=== PATIENT | female | born 1955 | race American Indian/Alaskan Native ===

== ENCOUNTER 2020-06-11 07:47 | Emergency (ER) | payer SELFPAY ==
[2020-06-11] MEDS ORDERED: levETIRAcetam 1000 MG/NS 0.75% 1,000 MG/100 ML BAG IV ONE (08:29)
[2020-06-11] MEDS ORDERED: LORazepam 2 MG/ML VIAL IV ONE (08:29)
--- NOTE | 2020-06-11 08:36 | Consultation ---
History of Present Illness History of present illness: [facility] Date of Service: 06/11/2020 08:14:51 Impression: Intracerebral Hemorrhage Comments/Sign-Out: Patient presented with new onset seizure. HCT showed a new intracerebral hemorrhage. etiology of bleed is concerning for hypertensive. Since it is cortical would benefit from further imaging to rule out other causes. In terms of seizures would recommend ativan/ keppra. Metrics: Last Known Well: 06/10/2020 23:30:00 [facility] Notification Time: 06/11/2020 08:14:15 Arrival Time: 06/11/2020 07:47:00 Stamp Time: 06/11/2020 08:14:51 Time First Login Attempt: 06/11/2020 08:20:41 Video Start Time: 06/11/2020 08:20:41 Symptoms: Left sided numbness. NIHSS Start Assessment Time: 06/11/2020 08:25:00 Patient is not a candidate for Alteplase/Activase. Patient was not deemed candidate for Alteplase/Activase thrombolytics because of Current or Previous ICH. Video End Time: 06/11/2020 08:32:55 CT head was reviewed and results were: Rt frontal ICH Clinical Presentation is not Suggestive of Large Vessel Occlusive Disease ED Physician notified of diagnostic impression and management plan on 06/11/2020 08:31:32 Our recommendations are outlined below. Recommendations: Ativan 2mg IV STAT Keppra 3000 mg IV STAT Sign Out: Discussed with Emergency Department Provider History of Present Illness: Patient is a 65 year old Female. Patient was brought by private transportation with symptoms of Left sided numbness. Past Medical History of Hypertension presents with seizure. Last seen normal was the night prior around 2300. patient woke up with jerking of the left side. Was brought in ED feeling a little altered with left sided convulsions. No previous history of seizure Last seen normal was beyond 4.5 hours of presentation. There is no history of hemorrhagic complications or intracranial hemorrhage. There is no history of Recent Anticoagulants. There is no history of recent major surgery. There is no history of recent stroke. Past Medical History: Hypertension Anticoagulant use: No Antiplatelet use: ASA Examination: BP(.), Pulse(.), Blood Glucose(.) 1A: Level of Consciousness - Alert; keenly responsive + 0 1B: Ask Month and Age - Both Questions Right + 0 1C: Blink Eyes & Squeeze Hands - Performs Both Tasks + 0 2: Test Horizontal Extraocular Movements - Normal + 0 3: Test Visual Pringle - No Visual Loss + 0 4: Test Facial Palsy (Use Grimace if Obtunded) - Normal symmetry + 0 5A: Test Left Arm Motor Drift - No Movement + 4 5B: Test Right Arm Motor Drift - No Drift for 10 Seconds + 0 6A: Test Left Leg Motor Drift - No Movement + 4 6B: Test Right Leg Motor Drift - Drift, hits bed + 2 7: Test Limb Ataxia (FNF/Heel-Johnson) - No Ataxia + 0 8: Test Sensation - Normal; No sensory loss + 0 9: Test Language/Aphasia - Normal; No aphasia + 0 10: Test Dysarthria - Mild-Moderate Dysarthria: Slurring but can be understood + 1 11: Test Extinction/Inattention - No abnormality + 0 NIHSS Score: 11 Patient/Family was informed the Neurology Consult would happen via TeleHealth consult by way of interactive audio and video telecommunications and consented to receiving care in this manner. Dr Broderick [facility] Case [id number] Medications and Allergies Allergies Allergy/AdvReac Type Severity Reaction Status Date / Time No Known Allergies Allergy Unverified 06/11/20 07:58 Active Meds: Active Medications Levetiracetam (Keppra 1,000 Mg/Ns 0.75% 100ml) 1,000 mg in 100 mls @ 400 mls/hr IV ONCE ONE Stop: 06/11/20 08:43
[2020-06-11] MEDS ORDERED: niCARdipine DRIP 40 MG/200 ML BAG IV ONE (08:37)
--- NOTE | 2020-06-11 08:46 | Cat Scan Report ---
CT head/brain wo con INDICATION: Stroke protocol. TECHNIQUE: Routine CT head. All CT scans at this location are performed using CT dose reduction for A GINA by means of automated exposure control. COMPARISON: None. FINDINGS: Please note that image quality is significantly degraded by motion. Intracranial: No loss of araujo-white matter differentiation. There is a small parenchymal hemorrhage a long the right postcentral gyrus in the area that could affect the left leg. There is no hyperdensity of the superior sagittal sinus to suggest dural venous sinus thrombosis or in the sulci to suggest c ortical vein thrombosis. No extra axial collection.. No hydrocephalus. No herniation. Sinuses: Paranasal sinuses and mastoid air cells are essentially clear. Orbits: Globes are intact. Calvarium: No acute fracture. IMPRESSION: 1. Small parenchymal hemorrhage in the right postcentral gyrus. This is an atypical location for pa renchymal hemorrhages. Consider MRI for further evaluation. I informed Dr. Price who is taking care of this patient via telephone at [phone]. The patient was not kn own to be hypertensive and didnt have trauma history Signer Name: Tony Terrazas MD Signed: 06/11/2020 8:41 AM Workstation Name: [id number]
[2020-06-11 09:04] LABS: Hematocrit 43.8 % (30.3-42.9); Hemoglobin 15.1 gm/dl (10.1-14.3); Mean Corpuscular HGB Conc 34 % (30-34); Mean Corpuscular Volume 90 fl (79-97); Platelet Count 194 K/mm3 (140-440); Red Blood Count 4.88 M/mm3 (3.65-5.03); Red Cell Distribution Width 15.8 % (13.2-15.2)
[2020-06-11 09:05] LABS: INR 0.87 (0.87-1.13)
[2020-06-11 09:06] LABS: Thrombin Time 16.8 Sec. (15.1-19.6)
[2020-06-11 09:07] LABS: BUN/Creatinine Ratio 24; Blood Urea Nitrogen 17 mg/dL (7-17); Calcium 10.2 mg/dL (8.4-10.2); Hemolysis Index 19
[2020-06-11 09:09] LABS: Creatine Kinase MB 2.3 ng/mL (0.0-4.0)
--- NOTE | 2020-06-11 09:19 | Emergency Department Report ---
ED General Adult HPI - General Chief complaint: Seizure Stated complaint: NUMBNESS LT LEG PUI?: No Time Seen by Provider: 06/11/20 08:13 Source: patient, EMS Mode of arrival: Wheelchair Limitations: Other - History of Present Illness Initial comments: Patient is a 65-year-old F [place] female with a past medical history of hype rtension and remote stroke with no residual deficit who is presenting with shaking to the left leg with numbness. Patient states that she cannot stop shaking her left leg. States she has decreased sensation as well. When questioned further she states that she is also having shaking to the left arm. Patient was normal when she went to bed and she woke up with the symptoms. She is has a mild headache. She denies nausea vomiting diarrhea cough cold or congestion. Patient has no history of seizures. - Related Data Allergies Allergy/AdvReac Type Severity Reaction Status Date / Time No Known Allergies Allergy Unverified 06/11/20 07:58 ED Review of Systems ROS: Stated complaint: NUMBNESS LT LEG Other details as noted in HPI Comment: All other systems reviewed and negative ED Past Medical Hx - Past Medical History Previous Medical History?: Yes Hx Hypertension: Yes - Surgical History Additional Surgical History: unknown ED Physical Exam - General Limitations: Other General appearance: alert, in no apparent distress - Head Head exam: Present: atraumatic, normocephalic - Eye Eye exam: Present: normal appearance, PERRL, EOMI - ENT ENT exam: Present: mucous membranes moist - Neck Neck exam: Present: normal inspection - Respiratory Respiratory exam: Present: normal lung sounds bilaterally. Absent: respiratory distress, wheezes, rales - Cardiovascular Cardiovascular Exam: Present: normal rhythm, tachycardia. Absent: systolic murmur, diastolic murmur, rubs, gallop - GI/Abdominal GI/Abdominal exam: Present: soft, normal bowel sounds. Absent: distended, tenderness, guarding, rebound - Extremities Exam Extremities exam: Present: normal inspection - Back Exam Back exam: Present: normal inspection - Neurological Exam Neurological exam: Present: alert, oriented X3, motor sensory deficit - Psychiatric Psychiatric exam: Present: normal affect, normal mood - Skin Skin exam: Present: warm, dry, intact, normal color. Absent: rash - Other Other exam information: Examination: BP(.), Pulse(.), Blood Glucose(.) 1A: Level of Consciousness - Alert; keenly responsive + 0 1B: Ask Month and Age - Both Questions Right + 0 1C: Blink Eyes & Squeeze Hands - Performs Both Tasks + 0 2: Test Horizontal Extraocular Movements - Normal + 0 3: Test Visual Pringle - No Visual Loss + 0 4: Test Facial Palsy (Use Grimace if Obtunded) - Normal symmetry + 0 5A: Test Left Arm Motor Drift - No Movement + 4 5B: Test Right Arm Motor Drift - No Drift for 10 Seconds + 0 6A: Test Left Leg Motor Drift - No Movement + 4 6B: Test Right Leg Motor Drift - Drift, hits bed + 2 7: Test Limb Ataxia (FNF/Heel-Johnson) - No Ataxia + 0 8: Test Sensation - Normal; decreased sensation left side +2 9: Test Language/Aphasia - Normal; No aphasia + 0 10: Test Dysarthria - Mild-Moderate Dysarthria: Slurring but can be understood + 1 11: Test Extinction/Inattention - No abnormality + 0 NIHSS Score: 13 Patient/Family was informed the Neurology Consult would happen via TeleHealth consult by way of interactive audio and video telecommunications and consented to receiving care in this manner. ED Course Vital Signs 06/11/20 09:07 Temperature 98.3 F ED Medical Decision Making - Lab Data Result diagrams: 06/11/20 08:40 06/11/20 08:40 Lab Results 06/11/20 06/11/20 06/11/20 Range/Units 08:40 08:40 08:40 WBC 8.2 (4.5-11.0) K/mm3 RBC 4.88 (3.65-5.03) M/mm3 Hgb 15.1 H (10.1-14.3) gm/dl Hct 43.8 H (30.3-42.9) % MCV 90 (79-97) fl MCH 31 (28-32) pg MCHC 34 (30-34) % RDW 15.8 H (13.2-15.2) % Plt Count 194 (140-440) K/mm3 PT 11.9 L (12.2-14.9) Sec. INR 0.87 (0.87-1.13) APTT 21.0 L (24.2-36.6) Sec. Thrombin Time 16.8 (15.1-19.6) Sec. Sodium (137-145) mmol/L Potassium (3.6-5.0) mmol/L Chloride (98-107) mmol/L Carbon Dioxide (22-30) mmol/L Anion Gap mmol/L BUN (7-17) mg/dL Creatinine (0.6-1.2) mg/dL Estimated GFR ml/min BUN/Creatinine Ratio % Glucose (65-100) mg/dL Calcium (8.4-10.2) mg/dL Total Creatine Kinase 52 (30-135) units/L CK-MB (CK-2) 2.3 (0.0-4.0) ng/mL CK-MB (CK-2) Rel Index 4.4 H (0-4) Troponin T < 0.010 (0.00-0.029) ng/mL Plasma/Serum Alcohol (0-0.07) % 06/11/20 06/11/20 Range/Units 08:40 08:40 WBC (4.5-11.0) K/mm3 RBC (3.65-5.03) M/mm3 Hgb (10.1-14.3) gm/dl Hct (30.3-42.9) % MCV (79-97) fl MCH (28-32) pg MCHC (30-34) % RDW (13.2-15.2) % Plt Count (140-440) K/mm3 PT (12.2-14.9) Sec. INR (0.87-1.13) APTT (24.2-36.6) Sec. Thrombin Time (15.1-19.6) Sec. Sodium 141 (137-145) mmol/L Potassium 3.9 (3.6-5.0) mmol/L Chloride 101.4 (98-107) mmol/L Carbon Dioxide 28 (22-30) mmol/L Anion Gap 16 mmol/L BUN 17 (7-17) mg/dL Creatinine 0.7 (0.6-1.2) mg/dL Estimated GFR > 60 ml/min BUN/Creatinine Ratio 24 % Glucose 96 (65-100) mg/dL Calcium 10.2 (8.4-10.2) mg/dL Total Creatine Kinase (30-135) units/L CK-MB (CK-2) (0.0-4.0) ng/mL CK-MB (CK-2) Rel Index (0-4) Troponin T (0.00-0.029) ng/mL Plasma/Serum Alcohol < 0.01 (0-0.07) % - Radiology Data Ordering Physician: MARGIE PRICE MD Date of Service: 06/11/20 Procedure(s): CT head/brain wo con Accession Number(s): [id number] cc: MARGIE PRICE MD CT head/brain wo con INDICATION: Stroke protocol. TECHNIQUE: Routine CT head. All CT scans at this location are performed using CT dose reduction for ALARA by means of automated exposure control. COMPARISON: None. FINDINGS: Please note that image quality is significantly degraded by motion. Intracranial: No loss of araujo-white matter differentiation. There is a small parenchymal hemorrhage along the right postcentral gyrus in the area that could affect the left leg. There is no hyperdensity of the superior sagittal sinus to suggest dural venous sinus thrombosis or in the sulci to suggest cortical vein thrombosis. No extra axial collection.. No hydrocephalus. No herniation. Sinuses: Paranasal sinuses and mastoid air cells are essentially clear. Orbits: Globes are intact. Calvarium: No acute fracture. IMPRESSION: 1. Small parenchymal hemorrhage in the right postcentral gyrus. This is an atypical location for parenchymal hemorrhages. Consider MRI for further evaluation. I informed Dr. Price who is taking care of this patient via telephone at [phone]. The patient was not known to be hypertensive and didnt have trauma history Signer Name: Tony Terrazas MD Signed: 06/11/2020 8:41 AM Workstation Name: [id number] - Medical Decision Making On initial exam triage patient presented with uncontrolled shaking to the left leg. States she has some numbness. First glance it appears that the patient was doing this voluntarily or subconsciously since she was awake and alert with a GCS of 15. Further examination of the patient had no ability to move the left leg or left arm.. Patient with decreased sensation to pain as well. Code stroke was called. On CT the patient appears to have a intraparenchymal bleed. Patient is uncontrolled shaking is likely due to a partial seizure. Patient given Ativan which did help with the shaking. Started on Keppra. Patient started on Cardene drip for elevated blood pressure. This was stopped after about 30minutes blood pressure dropped to 130/97 the Cardene drip was paused. We will attempt to keep the systolic blood pressure under 150. Patient to be transferred to [facility]. Dr. Lyn accepted ' Critical Care Time: Yes (30) Critical care attestation.: If time is entered above; I have spent that time in minutes in the direct care of this critically ill patient, excluding procedure time. ED Disposition Clinical Impression: Acute intracranial hemorrhage, Hypertensive emergency, Partial seizure, motor Disposition: [id number]/TX-[id number] ANOTHER TYPE HLTHCARE Is pt being admited?: No Does the pt Need Aspirin: No Condition: Stable Time of Disposition: 09:20
[2020-06-11 09:51] LABS: Total Cells Counted 100
[2020-06-11 09:52] LABS: Basophils % (Manual) 0 % (0.0-1.8); RBC Morphology Normal
[2020-06-11] MEDS ORDERED: dilTIAZem 25 MG/5 ML INJ ONE (18:14)
[2020-06-11] MEDS ORDERED: dilTIAZem 25 MG/5 ML INJ IV ONE ×2 (18:17→19:28)
--- NOTE | 2020-06-11 18:44 | XRay Report ---
CHEST 1 VIEW INDICATION: hypertension COMPARISON: None FINDINGS: Support devices: None Heart: Upper limits of normal Lungs/Pleura: No acute pulmonary or pleural findings. IMPRESSION: 1. No acute disease. Signer Name: Garret Joiner MD Signed: 06/11/2020 6:40 PM Workstation Name: [id number]
[2020-06-11] MEDS ORDERED: dilTIAZem/D5W 100 MG/100 ML BAG IV SCH (19:00)
[2020-06-11 21:45] VITALS: BP 138/83
== END 2020-06-11 20:45 | disposition other institution (70) ==
LOC: EDSEX → ED 07:47
DX: I62.9 Nontraumatic intracranial hemorrhage, unspecified (principal); I16.1 Hypertensive emergency; R56.9 Unspecified convulsions
CPT/HCPCS: 36415; 70450; 71045; 80048; 82550; 82553; 82962; 84484; 85007; 85025; 85610; 85670; 85730; 93005; 96374; 96375; 96376; 99291; J1953; J2060; 80320; G0480